=== PATIENT | male | born 1985 | race Caucasian/White ===

== ENCOUNTER 2017-04-30 22:43 | Inpatient (IN) | payer MEDICAID ==
[~2017-04-30] VITALS: Ht 177.8 cm; Wt 110.0 kg
[2017-04-30 22:44] VITALS: O2SAT 100
[2017-04-30] MEDS ORDERED: PROPOFOL 1000 MG/100 ML INJ 100 ML ONE (22:56)
[2017-04-30 22:59] VITALS: O2SAT 100
[2017-04-30 23:02] LABS: BASOPHIL % 0.4 % (0.0-2.0); EOSINOPHIL # 0.1 TH/MM3 (0-0.4); EOSINOPHIL % 1.3 % (0.0-4.0); HEMATOCRIT 39.4 % (39.0-51.0); HEMOGLOBIN 13.7 GM/DL (13.0-17.0); LYMPH % 35.6 % (9.0-44.0); LYMPHOCYTE # 2.6 TH/MM3 (1.0-4.8); MEAN CELL VOLUME 86.4 FL (80.0-100.0); MEAN CORPUSCULAR HEMOGLOBIN 29.9 PG (27.0-34.0); MEAN CORPUSCULAR HGB CONC 34.6 % (32.0-36.0); MEAN PLATELET VOLUME 8.5 FL (7.0-11.0); MONO % 8.1 % (0.0-8.0); MONOCYTE # 0.6 TH/MM3 (0-0.9); NEUT % 54.6 % (16.0-70.0); PLATELET COUNT 220 TH/MM3 (150-450); RED BLOOD COUNT 4.57 MIL/MM3 (4.50-5.90); RED CELL DISTRIBUTION WIDTH 12.4 % (11.6-17.2); WHITE BLOOD COUNT 7.3 TH/MM3 (4.0-11.0)
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
[2017-04-30 23:16] LABS: PROTHROMBIN TIME - PATIENT 10.2 SEC (9.8-11.6)
[2017-04-30] MEDS ORDERED: IOHEXOL 350 MG/ML 10 ML VIAL (for RAD DIAG) IVCONTRAST ONE (23:26)
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
[2017-04-30 23:30] VITALS: O2SAT 100
[2017-04-30] MEDS ORDERED: MISCELLANEOUS NURSING INFORMATION XX SCH (23:30)
[2017-04-30] MEDS ORDERED: CHLORHEXIDINE GLUCONATE 2 % 1 PACK (2 CLOTHS) TOP PRN (23:30)
[2017-04-30] MEDS ORDERED: BISACODYL 10 MG SUPP RECTAL PRN (23:30)
[2017-04-30] MEDS ORDERED: FAMOTIDINE 20 MG/2 ML VIAL IV PUSH SCH (23:30)
[2017-04-30] MEDS ORDERED: SENNOSIDES 8.6 MG TAB PO PRN (23:30)
[2017-04-30] MEDS ORDERED: LACTULOSE SYRUP 20 GM/30 ML CUP PO PRN (23:30)
[2017-04-30] MEDS ORDERED: MAGNESIUM HYDROXIDE SUSP 30 ML CUP PO PRN (23:30)
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
[2017-04-30] MEDS ORDERED: PROPOFOL 1000 MG/100 ML INJ 100 ML IV PRN (23:45)
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
[2017-05-01] VITALS (10 sets, daily range): BP systolic 120–181; BP diastolic 67–111; PULSE 81–135; RESP 16–26; TEMP 96.1–100.5; O2SAT 95–100
[2017-05-01] MEDS: SODIUM CHLOR 0.9% 1000 ML INJ 1,000 ML IV SCH ×4 (00:10→21:01)
[2017-05-01] MEDS: PROPOFOL 1000 MG/100 ML IV PRN ×2 (00:15→03:01)
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
[2017-05-01] MEDS: CHLORHEXIDINE GLUCONATE 2 % 1 PACK (2 CLOTHS) TOP SCH ×2 (02:59→21:01)
[2017-05-01] MEDS ORDERED: MAGNESIUM OXIDE 400 MG TAB PO PRN (03:00)
[2017-05-01] MEDS ORDERED: POTASSIUM CHLORIDE 25 MEQ EFFERVESCENT TAB PO PRN (03:00)
[2017-05-01] MEDS ORDERED: POTASSIUM PHOSPHATE MONOBASIC 500 MG TAB PO/TUBE PRN (03:00)
[2017-05-01] MEDS ORDERED: POTASSIUM PHOSPHATE INJ 30 MMOL in SODIUM CHLOR 0.9% 250 ML INJ 250 ML IV PRN (03:00)
[2017-05-01] MEDS ORDERED: POTASSIUM CHLOR 20 MEQ PREMIX 100 ML IV PRN ×2 (03:00)
[2017-05-01] MEDS ORDERED: MAGNESIUM SULFATE INJ 4 GM in SODIUM CHLORIDE 0.9% INJ 92 ML IV PRN (03:00)
[2017-05-01] MEDS ORDERED: POTASSIUM CHLOR 40 MEQ PREMIX 100 ML IV PRN ×2 (03:00)
[2017-05-01] MEDS ORDERED: POTASSIUM PHOSPHATE MONOBASIC 500 MG TAB PO PRN (03:00)
[2017-05-01] MEDS ORDERED: MAGNESIUM SULFATE INJ 2 GM in SODIUM CHLORIDE 0.9% INJ 96 ML IV PRN (03:00)
[2017-05-01] MEDS ORDERED: SODIUM PHOSPHATE INJ 30 MMOL in SODIUM CHLOR 0.9% 250 ML INJ 240 ML IV PRN (03:00)
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
[2017-05-01] MEDS ORDERED: MULTIVITAMIN INJ 10 ML, THIAMINE INJ 100 MG, FOLIC ACID INJ 1 MG in SODIUM CHLOR 0.45% ... IV ONE (05:00)
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
[2017-05-01 05:43] LABS: AUTOMATED NEUTROPHIL # 4.8 TH/MM3 (1.8-7.7); BASOPHIL % 0.3 % (0.0-2.0); EOSINOPHIL # 0.1 TH/MM3 (0-0.4); EOSINOPHIL % 0.9 % (0.0-4.0); HEMATOCRIT 36.4 % (39.0-51.0); HEMOGLOBIN 12.3 GM/DL (13.0-17.0); LYMPH % 26.9 % (9.0-44.0); MEAN CELL VOLUME 87.5 FL (80.0-100.0); MEAN CORPUSCULAR HEMOGLOBIN 29.6 PG (27.0-34.0); MEAN CORPUSCULAR HGB CONC 33.8 % (32.0-36.0); MEAN PLATELET VOLUME 8.8 FL (7.0-11.0); MONO % 7.8 % (0.0-8.0); MONOCYTE # 0.6 TH/MM3 (0-0.9); NEUT % 64.1 % (16.0-70.0); PLATELET COUNT 213 TH/MM3 (150-450); RED BLOOD COUNT 4.16 MIL/MM3 (4.50-5.90); RED CELL DISTRIBUTION WIDTH 12.7 % (11.6-17.2); WHITE BLOOD COUNT 7.5 TH/MM3 (4.0-11.0)
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
[2017-05-01 06:18] LABS: BICARBONATE 24.2 MEQ/L (21.0-32.0); CALCIUM 7.6 MG/DL (8.5-10.1); CREATININE 0.62 MG/DL (0.60-1.30); PHOSPHORUS 3.3 MG/DL (2.5-4.9)
[2017-05-01] MEDS ORDERED: LACTATED RINGER'S 1000 ML INJ 1,000 ML IV ONE (06:45)
[2017-05-01] MEDS ORDERED: oxyCODONE HCL ORAL CONC 5 MG/0.25 ML SYRINGE PO ONE (06:45)
[2017-05-01] MEDS ORDERED: ZIPRASIDONE MESYLATE 20 MG VIAL IM ONE (06:45)
[2017-05-01] MEDS: DOCUSATE SODIUM 50 MG/SENNA 8.6 MG TAB PO SCH ×2 (09:00→20:57)
[2017-05-01] MEDS ORDERED: PERI PO (19:31)
[2017-05-01] MEDS ORDERED: MAGN30S PO (19:31)
[2017-05-02 00:05] VITALS: BP 129/83; PULSE 78; RESP 16; TEMP 100.1; O2SAT 94
[2017-05-02 04:05] VITALS: BP 124/73; PULSE 83; RESP 16; TEMP 97.4; O2SAT 95
[2017-05-02] MEDS: SODIUM CHLOR 0.9% 1000 ML INJ 1,000 ML IV SCH ×2 (07:30→15:24)
[2017-05-02 07:59] VITALS: BP 128/73; PULSE 83; RESP 18; TEMP 97.3; O2SAT 96
[2017-05-02] MEDS: DOCUSATE SODIUM 50 MG/SENNA 8.6 MG TAB PO SCH (08:24)
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
[2017-05-02 12:00] VITALS: BP 121/82; PULSE 66; RESP 18; TEMP 98.5; O2SAT 98
[2017-05-02] MEDS ORDERED: ENOXAPARIN SODIUM 40 MG/0.4 ML SYRINGE SQ SCH (12:00)
[2017-05-02] MEDS ORDERED: PERC5TAB12 PO (12:33)
[2017-05-02 16:00] VITALS: BP 139/76; PULSE 78; RESP 18; TEMP 95.9; O2SAT 100
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
== END 2017-05-02 18:43 | disposition home or self-care (01) | DRG 896 ==
LOC: NEPI 22:43 → N03A 23:32 → EDBD 23:32 → N06A 05-01 11:43
PROVIDERS: ADMIT Surgery Trauma Surgery; ATTEND Surgery Trauma Surgery
PROC: 0BH17EZ Insertion of Endotracheal Airway into Trachea, Via Natural or Artificial Opening (ICD-10-PCS; principal; 2017-04-30)
PROC: 5A1935Z Respiratory Ventilation, Less than 24 Consecutive Hours (ICD-10-PCS; 2017-04-30)
DX: F10.120 Alcohol abuse with intoxication, uncomplicated (principal); J96.90 Respiratory failure, unspecified, unspecified whether with hypoxia or hypercapnia; E87.6 Hypokalemia; Y04.0XXA Assault by unarmed brawl or fight, initial encounter; M54.2 Cervicalgia; R40.2420 Glasgow coma scale score 9-12, unspecified time; S00.531A Contusion of lip, initial encounter
CPT/HCPCS: 36600; 70450; 70486; 71045; 71260; 72125; 72141; 72170; 74177; 80048; 82805; 84100; 85025; 85610; 85730; 86850; 86900; 86901; 87086; 87641; 94002; 94150; J1650; J3010; J3411; J3480; J3486; J7030; J7120; Q9967